=== PATIENT | male | born 1975 | race Caucasian/White ===

== ENCOUNTER 2021-09-09 21:00 | Inpatient (IN) | payer MEDICAID, SELFPAY ==
[2021-09-09 21:03] VITALS: BMI 47.4
[2021-09-09 21:07] VITALS: BP 151/91; PULSE 81; RESP 18; TEMP 36.9; O2SAT 97
[2021-09-09] MEDS: cetirizine 10 mg Tablet PO (21:33)
[2021-09-09] MEDS: metformin XR 500 MG Tablet PO (21:33)
[2021-09-09] MEDS: citalopram 20 mg Tablet 40 MG PO (21:33)
[2021-09-09] MEDS: trazodone 50 mg Tablet PO (21:38)
--- NOTE | 2021-09-09 22:03 | PC.NURSE ---
ADMISSION- PT REPORTS THAT HE WAS HAVING SOME SI. SISTER FOUND HIM ON AN OVERPASS. STATES THAT HE HAS JUST HAD MANY STRESSORS RECENTLY WITH SEVERAL FAILED RELATIONSHIPS, [facility] AND NOW WANTS TO RETURN. HAS EXTENSIVE HX OF LEGAL ISSUES AND CORRECTION, HX OF HEROIN USE. CLEAN 20 YEARS FROM HEROIN. OUT OF CORRECTION IN 2019, 1 YEAR OF PROBATION LEFT. USED METH A FEW DAYS AGO, OCCASIONAL USE. + AMPHETAMINES. CALM AND COOPERATIVE. PT HAS CONTACTS AT BEDSIDE. MEDICATIONS ORDERED FOR CONTINUATION WITH INITIAL DOSES GIVEN.
[2021-09-10 06:00] VITALS: BP 144/64; PULSE 74; RESP 18; TEMP 36.6; O2SAT 96
[2021-09-10 07:30] LABS: Glucose Point of Care 113 mg/dL (70-110)
[2021-09-10] MEDS: cetirizine 10 mg Tablet PO (08:37)
[2021-09-10] MEDS: citalopram 20 mg Tablet 40 MG PO (08:37)
[2021-09-10 11:40] LABS: Glucose Point of Care 128 mg/dL (70-110)
[2021-09-10 14:00] VITALS: BP 133/75; PULSE 68; RESP 17; TEMP 36.7; O2SAT 96
--- NOTE | 2021-09-10 15:39 | P.NPUHP_ITS ---
Providers/Chief Complaint Admitting Physician: Efrain Dejesus MD Chief Complaint: SI HPI NPU History of Present Illness Chalo Wise is a 46 year old male who presented to an outside hospital with suicidal thoughts intoxication and inability to contract for safety. He was transferred to [facility] and admitted to the neuropsychiatric unit for definitive treatment of those issues. He presents today reporting that he has never had a psychiatric hospitalization before except for when he was around 17 or 18 and his mother had and he drank 1/5 of alcohol and was noted to be unsafe. He endorsed having limited outpatient services going a couple times limits her. He reports at one time he had been put on Prozac but did not stay on long. He reports that he did smoke cigarettes in a limited fashion in the past but gave that up in about 2014, he denies significant alcohol use, denies significant marijuana use denies current drug use but does report that he has had difficulties with opiate in the past and has been to a rehab in the past he denies any DUIs but does report having some possessions and paraphernalia charges. He reports that he had some challenging times after the of his mother but denied significant mental health issues until he started having some anxiety after he was released from halfway. He reports that he started having significant difficulty being around people after his release. But he denies any significant history of suicidal thinking or self-injurious behavior. He reports however that a pattern of difficulty dealing with losses with females began after his left him 6 months into his halfway sentence. He reports it was really hard for him to get over this. He reports however that he did and he was able to connect with some other women that were good for him. But he ended a relationship and came down to [place] in part secondary to a new romance. The other day he realized that the current significant other was cheating on him and that brought back all the feelings of the other situations and things got out of control and he had been drinking and he was feeling like he needed closure and she was not answering his calls so he got out of sorts. He reports he is feeling fine now and that he would not do anything to harm himself and that his current medications are sufficient. Psychiatric history: As above. Substance abuse history: As above. Family history: Patient denies mental health or addiction issues on either side of the family and denies suicide attempts or completions in the family. Though he reports that there may have been some alcohol/addiction issues in his family and reflection. Developmental history: There were no problems with the , or delivery, learned to walk and talk and met developmental milestones on time, and denies need for speech therapy, learning support, emotional support or special education classes. Psychosocial history: He denied any significant issues in his family. He denied emotional physical or sexual abuse. He reports there were some traumatic things that occurred when he was in care home. He did not graduate from high school but did get his GED. He is a heterosexual. He denies any children. He lives sister. Legal history: Reports he is been to care home multiple times with a 6-year stent as his longest time. Medical history: He does endorse diabetes, hypertension, he is morbidly obese by BMI. Meds NPU Home Medications Medication Instructions Recorded Confirmed Last Taken Type cetirizine 10 mg tablet 10 mg PO DAILY 09/09/21 09/09/21 09/06/21 History citalopram 40 mg tablet 40 mg PO DAILY 09/09/21 09/09/21 09/06/21 History metformin 500 mg tablet,extended 500 mg PO BEDTIME 09/09/21 09/09/21 09/06/21 History release 24 hr Allergies Allergy/AdvReac Type Severity Reaction Status Date / Time Penicillins Allergy ALGY-Rash Verified 09/09/21 21:19 Sulfa (Sulfonamide Allergy ALGY-Hives Verified 09/09/21 21:19 Antibiotics) Mental Status Exam MSE Comments: This is an obese versus mildly obese -[place] male with adequate grooming and eye contact. No abnormal movements deflectable retardation. Cooperative with exam in mild distress. Speech was decreased rate and volume. Mood described as better than yesterday, affect slightly subdued. Thought process organized. Thought process organized, thought content: patient denies suicidal or homicidal ideation, there were no delusions reported or noted, she denied any auditory or visual hallucinations. Attention and concentration were intact and memory appeared reliable but none were formally tested. He?s alert and oriented times three. Insight and judgment appeared fair and impulse control appeared fair Vitals/I&O/Wt Last Vital Signs Temp 98.0 F 09/10/21 14:00 Pulse 68 09/10/21 14:00 Resp 17 09/10/21 14:00 BP 133/75 09/10/21 14:00 Pulse Ox 96 09/10/21 14:00 Weight last 48 hrs Weight 145.603 kg Weight 145.603 kg A&P Assessment and plan (1) History of trauma: Status: Acute (2) Partner relational problem: Status: Acute (3) Anxiety disorder: Status: Acute (4) History of substance abuse: Status: Acute Plan This is a 46-year-old -[place]serr[place] male with history of trauma and addiction who presents after an intimate partner conflict which led to him having a breakdown who presents reporting that he feels better now and denies any need for changes. 1. Continue current medication. 2. Continue every 15 minute checks for safety. 3. Encourage individual, group and milieu therapies. 4. Encourage sober living treatment after discharge at the highest level of care to which he is willing to commit. Involuntary Hold Information 96 Hour Hold: 96 Hour Involuntary Admission: No Attestations NPU Medical Necessity Statement*: Inpatient hospitalization is medically necessary and the clinically appropriate intervention at this time. We will monitor medication to make changes as indicated. Patient will be in the hospital for ove r two midnights. Likely length of stay 1-3 days. Coding Level of Care Code Acute [employer] for [employer]al [facility] Diagnoses History of trauma Z87.828 Partner relational problem Z63.0 Anxiety disorder F41.9 History of substance abuse F19.11
[2021-09-10 16:41] LABS: Glucose Point of Care 164 mg/dL (70-110)
[2021-09-10] MEDS: metformin XR 500 MG Tablet PO (20:30)
[2021-09-10] MEDS: trazodone 50 mg Tablet PO (20:30)
[2021-09-10 21:22] VITALS: BP 155/103; PULSE 75; RESP 18; TEMP 36.8; O2SAT 96
[2021-09-11 06:00] VITALS: BP 114/68; PULSE 65; RESP 18; TEMP 36.7; O2SAT 96
[2021-09-11 06:45] LABS: Glucose Point of Care 93 mg/dL (70-110)
[2021-09-11] MEDS: cetirizine 10 mg Tablet PO (09:37)
[2021-09-11] MEDS: citalopram 20 mg Tablet 40 MG PO (09:37)
[2021-09-11 11:14] LABS: Glucose Point of Care 125 mg/dL (70-110)
--- NOTE | 2021-09-11 13:03 | P.NPUDS_ITS ---
Diagnoses at Discharge Discharge Diagnosis (1) History of trauma: Status: Acute (2) Partner relational problem: Status: Acute (3) Anxiety disorder: Status: Acute (4) History of substance abuse: Status: Acute Reason for Visit Reason for Visit: SI Brief History: History of Present Illness Chalo Wise is a 46 year old male who presented to an outside hospital with suicidal thoughts intoxication and inability to contract for safety.? He was transferred to [facility] and admitted to the neuropsychiatric unit for definitive treatment of those issues.? He presents today reporting that he has never had a psychiatric hospitalization before except for when he was around 17 or 18 and his mother had and he drank 1/5 of alcohol and was noted to be unsafe.? He endorsed having limited outpatient services going a couple times limits her.? He reports at one time he had been put on Prozac but did not stay on long.? He reports that he did smoke cigarettes in a limited fashion in the past but gave that up in about 2014, he denies significant alcohol use, denies significant marijuana use denies current drug use but does report that he has had difficulties with opiate in the past and has been to a rehab in the past he denies any DUIs but does report having some possessions and paraphernalia charges.? He reports that he had some challenging times after the of his mother but denied significant mental health issues until he started having some anxiety after he was released from assisted.? He reports that he started having significant difficulty being around people after his release.? But he denies any significant history of suicidal thinking or self-injurious behavior.? He reports however that a pattern of difficulty dealing with losses with females began after his left him 6 months into his assisted sentence.? He reports it was really hard for him to get over this.? He reports however that he did and he was able to connect with some other women that were good for him.? But he ended a relationship and came down to [place] in part secondary to a new romance.? The other day he realized that the current significant other was cheating on him and that brought back all the feelings of the other situations and things got out of control and he had been drinking and he was feeling like he needed closure and she was not answering his calls so he got out of sorts.? He reports he is feeling fine now and that he would not do anything to harm himself and that his current medications are sufficient. Psychiatric history: As above. Substance abuse history: As above. Family history: Patient denies mental health or addiction issues on either side of the family and denies suicide attempts or completions in the family.? Though he reports that there may have been some alcohol/addiction issues in his family and reflection. Developmental history: There were no problems with the , or delivery, learned to walk and talk and met developmental milestones on time, and denies need for speech therapy, learning support, emotional support or special education classes. Psychosocial history: He denied any significant issues in his family.? He denied emotional physical or sexual abuse.? He reports there were some traumatic things that occurred when he was in intermediate.? He did not graduate from high school but did get his GED.? He is a heterosexual.? He denies any children.? He lives sister. Legal history: Reports he is been to intermediate multiple times with a 6-year stent as his longest time. Medical history: He does endorse diabetes, hypertension, he is morbidly obese by BMI. Hospital Course Hospital Course He quickly acclimated to the individual, group and milieu therapies provided. We do not change any medications. He was able to identify that he had a stress reaction that led him to drink and not be rational in his behaviors. He was really aware of the possible impact such behavior could have had given his probationary status as well as the impact addiction has had in his life. He had marked improvement during the hospitalization and was able to contract for safety outside the hospital prior to discharge. At the outside hospital, patient had routine laboratory studies which were within normal limits except for few outliers. Additionally there was a general medical evaluation which was also within normal limits and revealed no new acute processes. Discharge Summary: At the time of discharge, he denied psychosis or lethality. Mood and anxiety were well managed. Patient endorsed a plan to avoid all drugs of abuse and follow-up with the aftercare recommendations of the treatment team. Patient was evaluated and deemed to be absent credible lethality, and had achieved the maximum benefit from an inpatient hospitalization, so was discharged. Involuntary Hold Information 96 Hour Hold: 96 Hour Involuntary Admission: No Mental Status Exam MSE Comments: This is an obese versus mildly obese -Malaysian male with adequate grooming and eye contact.? No abnormal movements.? Cooperative with exam in no acute distress.? Speech was more normal rate and volume.? Mood described as better, affect congruent.? Thought process organized. Thought process organized, thought content: patient denies suicidal or homicidal ideation, there were no delusions reported or noted, he denied any auditory or visual hallucinations. Attention and concentration were intact and memory appeared reliable but none were formally tested. He?s alert and oriented times three. Insight and judgment appeared fair and impulse control appeared fair. Discharge Data Studies Completed and Pending: Laboratory Results POC Glucose 125 mg/dL (70-110 ) H 09/11/21 11:11 Vitals: Last Vital Signs Temp 98.0 F 09/11/21 06:00 Pulse 65 09/11/21 06:00 Resp 18 09/11/21 06:00 BP 114/68 09/11/21 06:00 Pulse Ox 96 09/11/21 06:00 Discharge Plan Discharge Patient Disposition: Home Condition: Stable Prescriptions: Continued cetirizine 10 mg tablet 10 mg PO DAILY 0RF citalopram 40 mg tablet 40 mg PO DAILY 0RF metformin 500 mg tablet extended release 24 hr 500 mg PO BEDTIME 0RF Discharge Orders: Discharge Order (Routine); Ordered 09/11/21 Ordered By: Nino Jose Referrals: [facility] [Other] - 09/16/21 11:30 am (Follow up) [facility] [Other] (Walk in status Tuesday through Tuesday 8:00 am to 4:00 pm. ) Discharge Diet: Diabetic Discharge Activity: Resume usual activity Patient Instructions: Opioid Safety Discharge Attestations NPU Time Spent in Discharge Care*: less than 30 min Specific Discharge Activities: Specific discharge activities: educating patient, discussing with disease case manager/social workers/dc planners, documenting/other paperwork and evaluating patient/reviewing data Coding Level of Care Code Acute Chg FW DC note Diagnoses History of trauma Z87.828 Partner relational problem Z63.0 Anxiety disorder F41.9 History of substance abuse F19.11
[2021-09-11 13:04] VITALS: BP 138/82; PULSE 76; RESP 16; TEMP 37; O2SAT 98
[2021-09-11 13:46] VITALS: BP 138/82; PULSE 76; RESP 16; TEMP 37; O2SAT 98
== END 2021-09-11 14:30 | disposition home or self-care (01) | DRG 880 ==
PROVIDERS: Admitting Provider Psychiatry & Neurology Psychiatry; Visit Provider Psychiatry & Neurology Psychiatry
DX: F41.9 Anxiety disorder, unspecified (principal); R45.851 Suicidal ideations; Z68.42 Body mass index [BMI] 45.0-49.9, adult; E11.9 Type 2 diabetes mellitus without complications; I10 Essential (primary) hypertension; E66.01 Morbid (severe) obesity due to excess calories; Z63.0 Problems in relationship with spouse or partner; Z79.84 Long term (current) use of oral hypoglycemic drugs
CPT/HCPCS: 36416; 82962; 97165